=== PATIENT | male | born 1950 | race Caucasian/White ===

== ENCOUNTER 2021-05-14 08:23 | Day surgery (SDC) | payer MEDICARE, BC ==
[~2021-05-14 08:23] MED LIST: Albuterol 0.083% 2.5 MG/3 ML Neb Soln NEB PRN; HYDROmorphone 2 MG/ML Syringe IVPUSH PRN; Lactated Ringers 1,000 ML IV SCH; Lidocaine 2% 5 ML SDV ONE; Metoclopramide 10 MG/2 ML SDV IVPUSH PRN; Morphine 10 MG/ML Syringe IVPUSH PRN; Morphine 2 MG/ML SYRINGE IVPUSH PRN; Naloxone 0.4 MG/ML Syringe IVPUSH PRN; Ondansetron 4 MG/2 ML SDV IVPUSH PRN; Ondansetron 4 MG/2 ML SDV ONE; fentaNYL 100 MCG/2 ML SDV IVPUSH PRN; propofoL 100 ML ONE
[2021-05-14] MEDS ORDERED: fentaNYL 100 MCG/2 ML SDV ONE (08:57)
[2021-05-14] MEDS ORDERED: Bupivacaine 0.5% 10 ML SDV ONE (09:25)
[2021-05-14] MEDS ORDERED: Metoclopramide 10 MG/2 ML SDV ONE (09:45)
[2021-05-14] MEDS ORDERED: Rocuronium Bromide 50 MG/5 ML Syringe ONE ×2 (09:45→09:53)
[2021-05-14] MEDS ORDERED: Dexmedetomidine 200 MCG/2 ML SDV ONE (09:45)
[2021-05-14] MEDS ORDERED: Sugammadex Sodium 200 MG/2 ML VIAL ONE ×2 (09:45→09:59)
[2021-05-14] MEDS ORDERED: Sodium Chloride 0.9% 20 ML ONE (09:55)
[2021-05-14] MEDS ORDERED: Calcium Gluconate 10% 1 GM/10 ML SDV ONE (09:56)
[2021-05-14] MEDS ORDERED: Ondansetron 4 MG/2 ML SDV IVPUSH PRN (10:40)
[2021-05-14] MEDS ORDERED: Acetaminophen 325 MG Tab PO PRN (10:40)
[2021-05-14] MEDS ORDERED: Acetaminophen/HYDROcodone 325-5 MG Tab PO PRN (10:40)
[2021-05-14] MEDS ORDERED: Lactated Ringers 1,000 ML IV SCH (10:45)
--- NOTE | 2021-05-14 10:45 | PCM.OPNOTE ---
- General Post-Op/Procedure Note Date of Surgery/Procedure: 05/14/21 Operative Procedure(s): Wide local reexcision, superficial spreading melanoma, upper back with layered 8.5 cm closure Pre Op Diagnosis: Superficial spreading melanoma Post-Op Diagnosis: Same Anesthesia Technique: General ET Tube (ASA III) Primary Surgeon: Dave Smallwood Fluid Replacement, Intraop: 1,000 EBL in mLs: 10 Condition: Good Free Text/Narrative:: DICTATION 295510 CPT CODE [id number]
--- NOTE | 2021-05-14 11:08 | PCM.POSTAN ---
POST ANESTHESIA ASSESSMENT - MENTAL STATUS Mental Status: Alert, Oriented - VITAL SIGNS Vital Signs: Last Vital Signs Temp 97.0 F 05/14/21 08:52 Pulse 61 05/14/21 11:05 Resp 11 L 05/14/21 11:05 BP 121/78 05/14/21 11:05 Pulse Ox 95 05/14/21 11:05 - RESPIRATORY Respiratory Status: Respiratory Rate WNL, Airway Patent, O2 Saturation Stable - CARDIOVASCULAR CV Status: Pulse Rate WNL, Blood Pressure Stable - GASTROINTESTINAL GI Status: No Symptoms - POST OP HYDRATION Hydration Status: Adequate & Stable
--- NOTE | 2021-05-14 11:10 | PCM48HPAN ---
Post Anesthesia Note - EVALUATION WITHIN 48HRS OF ANESTHETIC Vital Signs in Normal Range: Yes Patient Participated in Evaluation: Yes Respiratory Function Stable: Yes Airway Patent: Yes Cardiovascular Function Stable: Yes Hydration Status Stable: Yes Pain Control Satisfactory: Yes Nausea and Vomiting Control Satisfactory: Yes Mental Status Recovered: Yes Vital Signs: Last Vital Signs Temp 97.0 F 05/14/21 08:52 Pulse 61 05/14/21 11:05 Resp 11 L 05/14/21 11:05 BP 121/78 05/14/21 11:05 Pulse Ox 95 05/14/21 11:05
--- NOTE | 2021-05-14 11:10 | PCM.PREANE ---
Preanesthetic Assessment - Anesthesia/Transfusion/Family Hx Anesthesia History: Prior Anesthesia Without Reaction Transfusion History: No Prior Transfusion(s) - Review of Systems General: No Symptoms Pulmonary: No Symptoms Cardiovascular: No Symptoms Gastrointestinal: No Symptoms Neurological: No Symptoms Other: Reports: None - Physical Assessment NPO Status Date: 05/14/21 NPO Status Time: 00:00 Vital Signs: Last Vital Signs Temp 97.0 F 05/14/21 08:52 Pulse 61 05/14/21 11:05 Resp 11 L 05/14/21 11:05 BP 121/78 05/14/21 11:05 Pulse Ox 95 05/14/21 11:05 Height: 5 ft 11 in Weight: 303 lb ASA Class: 3 Mental Status: Alert & Oriented x3 Dentition: Reports: Normal Dentition ROM/Head Extension: Full Lungs: Clear to Auscultation, Normal Respiratory Effort Cardiovascular: Regular Rate, Regular Rhythm - Allergies Allergies/Adverse Reactions: Allergies Allergy/AdvReac Type Severity Reaction Status Date / Time No Known Allergies Allergy Verified 05/08/21 14:45 - Acknowledgements Anesthesia Type Planned: General Anesthesia Pt an Appropriate Candidate for the Planned Anesthesia: Yes Alternatives and Risks of Anesthesia Discussed w Pt/Guardian: Yes Pt/Guardian Understands and Agrees with Anesthesia Plan: Yes PreAnesthesia Questionnaire HEENT History: Reports: Cataract, Other (See Below) Other HEENT History: uses reading glasses, has upper dental plate Cardiovascular History: Reports: CAD, High Cholesterol, Hypertension Respiratory History: Reports: None Gastrointestinal History: Reports: None Genitourinary History: Reports: BPH Neurological History: Reports: Concussion, Head Trauma Psychiatric History: Reports: None Endocrine/Metabolic History: Reports: Obesity/BMI 30+ Hematologic History: Reports: None Immunologic History: Reports: None Oncologic (Cancer) History: Reports: None Dermatologic History: Reports: None - Past Surgical History Head Surgeries/Procedures: Reports: None HEENT Surgical History: Reports: Cataract Surgery Cardiovascular Surgical History: Reports: Coronary Artery Stent Other Cardiovascular Surgeries/Procedures: has had 2 stents placed- the last one was about 10 years ago- no chest pain or SOB currently, not sure if he had an WI at the time Respiratory Surgical History: Reports: None GI Surgical History: Reports: None Male Surgical History: Reports: None Endocrine Surgical History: Reports: None Neurological Surgical History: Reports: None Musculoskeletal Surgical History: Reports: Other (See Below) Other Musculoskeletal Surgeries/Procedures:: shrapnel removed from face- skin grafted Oncologic Surgical History: Reports: None Dermatological Surgical History: Reports: Skin Graft - SUBSTANCE USE Tobacco Use Status *Q: Never Tobacco User Recreational Drug Use History: No - HOME MEDS Home Medications: Home Meds Aspirin [Adult Low Dose Aspirin EC] 81 mg PO BEDTIME 05/08/21 [History] Finasteride 5 mg PO BEDTIME 05/08/21 [History] Latanoprost/Pf [Latanoprost 0.005% Eye Drop] 1 drop EYEBOTH BEDTIME 05/08/21 [History] Simvastatin 20 mg PO BEDTIME 05/08/21 [History] Tamsulosin HCl 0.4 mg PO BEDTIME 05/08/21 [History] lisinopriL [Lisinopril] 10 mg PO BEDTIME 05/08/21 [History] - CURRENT (IN HOUSE) MEDS Current Meds: Current Medications Acetaminophen (Acetaminophen 325 Mg Tab) 325 mg PO Q4H PRN PRN Reason: Fever Greater Than 101 Hydrocodone Bitart/Acetaminophen (Acetaminophen/Hydrocodone 325-5 Mg Tab) 1 tab PO Q6H PRN PRN Reason: Pain (moderate 4-6) Albuterol (Albuterol 0.083% 2.5 Mg/3 Ml Neb Soln) 2.5 mg NEB ONETIME PRN PRN Reason: Wheezing Albuterol (Albuterol 0.083% 2.5 Mg/3 Ml Neb Soln) 2.5 mg NEB ONETIME PRN PRN Reason: Wheezing Droperidol (Droperidol 5 Mg/2 Ml Sdv) 0.625 mg IVPUSH ONETIME PRN PRN Reason: Nausea/Vomiting Fentanyl (Fentanyl 100 Mcg/2 Ml Sdv) 50 mcg IVPUSH Q5M PRN PRN Reason: Pain (mild 1-3) Hydromorphone HCl (Hydromorphone 2 Mg/Ml Syringe) 1 mg IVPUSH Q10M PRN PRN Reason: Pain (moderate 4-6) Lactated Ringer's (Ringers, Lactated) 1,000 mls @ 125 mls/hr IV ASDIRECTED MARGO Last Admin: 05/14/21 08:57 Dose: 125 mls/hr Documented by: Lactated Ringer's (Ringers, Lactated) 1,000 mls @ 125 mls/hr IV ASDIRECTED MARGO Metoclopramide HCl (Metoclopramide 10 Mg/2 Ml Sdv) 10 mg IVPUSH ONETIME PRN PRN Reason: Nausea/Vomiting Morphine Sulfate (Morphine 2 Mg/Ml Syringe) 2 mg IVPUSH Q10M PRN PRN Reason: Pain (severe 7-10) Naloxone HCl (Naloxone 0.4 Mg/Ml Syringe) 0.1 mg IVPUSH ASDIRECTED PRN PRN Reason: Respiratory Depression Ondansetron HCl (Ondansetron 4 Mg/2 Ml Sdv) 4 mg IVPUSH ONETIME PRN PRN Reason: Nausea/Vomiting Ondansetron HCl (Ondansetron 4 Mg/2 Ml Sdv) 4 mg IVPUSH Q6H PRN PRN Reason: Nausea/Vomiting Discontinued Medications Bupivacaine HCl (Bupivacaine 0.5% 10 Ml Sdv) Confirm Administered Dose 10 ml .ROUTE .STTvinci-MED ONE Stop: 05/14/21 09:26 Calcium Gluconate (Calcium Gluconate 10% 1 Gm/10 Ml Sdv) Confirm Administered Dose 1 gm .ROUTE .STTvinci-MED ONE Stop: 05/14/21 09:57 Dexmedetomidine HCl (Dexmedetomidine 200 Mcg/2 Ml Sdv) Confirm Administered Dose 200 mcg .ROUTE .STTvinci-MED ONE Stop: 05/14/21 09:46 Fentanyl (Fentanyl 100 Mcg/2 Ml Sdv) Confirm Administered Dose 100 mcg .ROUTE .STK-MED ONE Stop: 05/14/21 08:58 Propofol (Diprivan 100 Ml) Confirm Administered Dose 100 mls @ as directed .ROUTE .STTvinci-MED ONE Stop: 05/14/21 06:54 Sodium Chloride (Normal Saline) Confirm Administered Dose 20 mls @ as directed .ROUTE .STK-MED ONE Stop: 05/14/21 09:56 Lidocaine (Lidocaine 2% 5 Ml Sdv) Confirm Administered Dose 5 ml .ROUTE .STTvinci-MED ONE Stop: 05/14/21 06:54 Metoclopramide HCl (Metoclopramide 10 Mg/2 Ml Sdv) Confirm Administered Dose 10 mg .ROUTE .STTvinci-MED ONE Stop: 05/14/21 09:46 Ondansetron HCl (Ondansetron 4 Mg/2 Ml Sdv) Confirm Administered Dose 4 mg .ROUTE .STK-MED ONE Stop: 05/14/21 06:54 Rocuronium Sweet Grass (Rocuronium Sweet Grass 50 Mg/5 Ml Syringe) Confirm Administered Dose 50 mg .ROUTE .STK-MED ONE Stop: 05/14/21 09:46 Rocuronium Sweet Grass (Rocuronium Sweet Grass 50 Mg/5 Ml Syringe) Confirm Administered Dose 50 mg .ROUTE .STTvinci-MED ONE Stop: 05/14/21 09:54 Sugammadex Sodium (Sugammadex Sodium 200 Mg/2 Ml Vial) Confirm Administered Dose 200 mg .ROUTE .STTvinci-MED ONE Stop: 05/14/21 09:46 Sugammadex Sodium (Sugammadex Sodium 200 Mg/2 Ml Vial) Confirm Administered Dose 200 mg .ROUTE .STTvinci-MED ONE Stop: 05/14/21 10:00
--- NOTE | 2021-05-14 14:07 | OR ---
SURGEON: Dave Smallwood M.D. DATE OF PROCEDURE: 05/14/2021 OPERATION PERFORMED: Re-excision, superficial spreading melanoma of the back. PRIMARY SURGEON: Dave Smallwood M.D. ANESTHESIA: General endotracheal. ASA CLASSIFICATION: III. PREOPERATIVE DIAGNOSIS: 1 cm superficial spreading melanoma diagnosed placed skin biopsy by Dr. Finley. POSTOPERATIVE DIAGNOSIS: 1 cm superficial spreading melanoma diagnosed placed skin biopsy by Dr. Finley. ESTIMATED BLOOD LOSS: 10 mL. INTRAOPERATIVE FLUID REPLACEMENT: 1000 mL of crystalloid. DESCRIPTION OF PROCEDURE: The patient was taken to the operating room, kept on the transfer cart in the supine position. Time-out was called for appropriate identification of patient and procedure. Following general endotracheal anesthesia induction, the patient was placed on the operating table in the prone position with care taken to pad all bony prominences and with rolls under the axillae. The surgical site was then prepped with DuraPrep solution and sterile drapes were applied. Skin incision was marked out to allow for a 5 mm margin medially and laterally. With that accomplished, the skin and underlying tissue were infiltrated with 10 mL of 0.5% Marcaine solution. Skin incision was then made and deepened through the subcutaneous tissue obtaining hemostasis with the use of electrocautery. Electrocautery was used to remove the skin and underlying subcutaneous tissue. A 0 silk suture was placed at the superior margin for orientation purposes. Small bleeding sites were electrocoagulated. Subcutaneous tissue was then undermined to try and allow for less tension on the closure. Nevertheless, the closure was quite tight. The total length of the incision was 8.5 cm. This was closed in a layered fashion approximating the subcutaneous tissue and subdermal tissue with interrupted 2-0 Vicryl. The skin edges were reapproximated with interrupted 2-0 nylon sutures. It should be noted that the wound was irrigated prior to closing the wound. The wound was then dressed with sterile dressing and taped securely in place. Sponge, needle, and instrument counts were all correct. The patient was then rolled back onto the transfer cart to the supine position. Following emergence from anesthesia and extubation, he was taken to recovery room in stable condition. MIGUEL / ADOLPH /[id number]
== END 2021-05-14 11:58 | disposition home or self-care (01) ==
LOC: MW.SDS 08:23
PROVIDERS: ATTEND Surgery
DX: C43.59 Malignant melanoma of other part of trunk (principal); I25.10 Atherosclerotic heart disease of native coronary artery without angina pectoris; E66.9 Obesity, unspecified; E78.00 Pure hypercholesterolemia, unspecified; I10 Essential (primary) hypertension; Z79.82 Long term (current) use of aspirin; Z79.899 Other long term (current) drug therapy
CPT/HCPCS: 11601; 12034; 88305; J0610; J2704; J2765; J3010; J3490; J7120; 00300; 99100; J2405